=== PATIENT | male | born 1980 | race Asian ===

== ENCOUNTER 2018-07-08 10:10 | Emergency (ER) | payer SELFPAY ==
[2018-07-08] MEDS ORDERED: PEPCID IV ONE (11:17)
[2018-07-08] MEDS ORDERED: SOLU-Medrol IV ONE (11:17)
[2018-07-08] MEDS ORDERED: TORADOL IV ONE (11:17)
[2018-07-08] MEDS ORDERED: BENADRYL IV ONE (11:17)
[2018-07-08] MEDS ORDERED: NACL 0.9% 1000 ML 1,000 ML IV ONE (11:17)
[2018-07-08] MEDS ORDERED: SUBLIMAZE IV ONE (11:19)
--- NOTE | 2018-07-08 11:19 | Emergency Department Report ---
ED General Adult HPI - General Chief complaint: Abdominal Pain Stated complaint: L SIDE PAIN Time Seen by Provider: 07/08/18 11:07 Source: patient, RN notes reviewed Mode of arrival: Ambulatory Limitations: No Limitations - History of Present Illness Initial comments: This is a 37-year-old gentleman. The patient reportedly has a history of hypertension. The patient presents to the emergency room today with a complaint of left lower quadrant pain. The pain is present for 1-2 weeks. It is aching, and intermittent. It worsens with coughing, and it decreases with lying on his side. There is no nausea, vomiting, diarrhea, he reports no chest pain, no shortness of breath, no urinary symptoms and denies testicular pain. he denies DVT, pulmonary embolus risk factors. He endorses a secondary complaint of chronic wound to his anterior left tibial region, present for 6 months. He reports that he is currently taking an antibiotic, which she believes is Keflex, and "wound is not changing." He reports a prior antibiotic as well, but he cannot member the name of the antibiotic. The patient is not currently following up with the wound care fa cility for the wound. -: Gradual, week(s), month(s) Location: abdomen, left, lower extremity Radiation: non-radiation Severity scale (0 -10): 10 Quality: aching Consistency: intermittent Improves with: other Worsens with: other Associated Symptoms: rash. denies: confusion, chest pain, cough, diaphoresis, fever/chills, headaches, loss of appetite, malaise, nausea/vomiting, seizure, shortness of breath, syncope, weakness - Related Data Home Medications Medication Instructions Recorded Confirmed Last Taken Nebivolol HCl [Bystolic] 07/08/18 3 Weeks Ago ~06/17/18 Previous Rx's Medication Instructions Recorded Last Taken Type Acetaminophen [Tylenol Arthritis] 650 mg PO Q6HR PRN #30 tablet.er 07/08/18 Unknown Rx Amlodipine Besylate [Norvasc] 5 mg PO QDAY #30 tablet 07/08/18 Unknown Rx Ciprofloxacin HCl [Cipro] 500 mg PO TID #15 tablet 07/08/18 Unknown Rx Dicyclomine [Bentyl] 10 mg PO QID PRN #20 capsule 07/08/18 Unknown Rx Ibuprofen [Motrin] 600 mg PO Q8H PRN #30 tablet 07/08/18 Unknown Rx metroNIDAZOLE [Flagyl] 500 mg PO Q12HR #10 tab 07/08/18 Unknown Rx Allergies Allergy/AdvReac Type Severity Reaction Status Date / Time IV DYE Allergy Itching Uncoded 07/08/18 10:12 ED Review of Systems ROS: Stated complaint: L SIDE PAIN Other details as noted in HPI Constitutional: denies: fever Eyes: denies: vision change ENT: denies: epistaxis Respiratory: denies: cough Cardiovascular: denies: chest pain Gastrointestinal: abdominal pain Genitourinary: denies: urgency, dysuria, frequency, hematuria, discharge, testicular pain Skin: rash, lesions Neurological: denies: headache, weakness Psychiatric: anxiety ED Past Medical Hx - Past Medical History Previous Medical History?: Yes Hx Hypertension: Yes - Surgical History Past Surgical History?: No - Social History Smoking Status: Current Every Day Smoker Substance Use Type: Alcohol, Cocaine, Marijuana - Medications Home Medications: Home Medications Medication Instructions Recorded Confirmed Last Taken Type Acetaminophen [Tylenol Arthritis] 650 mg PO Q6HR PRN #30 tablet.er 07/08/18 Unknown Rx Amlodipine Besylate [Norvasc] 5 mg PO QDAY #30 tablet 07/08/18 Unknown Rx Ciprofloxacin HCl [Cipro] 500 mg PO TID #15 tablet 07/08/18 Unknown Rx Dicyclomine [Bentyl] 10 mg PO QID PRN #20 capsule 07/08/18 Unknown Rx Ibuprofen [Motrin] 600 mg PO Q8H PRN #30 tablet 07/08/18 Unknown Rx Nebivolol HCl [Bystolic] 07/08/18 3 Weeks Ago History ~06/17/18 metroNIDAZOLE [Flagyl] 500 mg PO Q12HR #10 tab 07/08/18 Unknown Rx ED Physical Exam - General Limitations: No Limitations General appearance: alert, anxious - Head Head exam: Present: atraumatic, normocephalic - Eye Eye exam: Present: normal appearance, EOMI. Absent: nystagmus - ENT ENT exam: Present: normal exam, normal orophraynx, mucous membranes moist, normal external ear exam - Neck Neck exam: Present: normal inspection, full ROM. Absent: tenderness, meningismus - Respiratory Respiratory exam: Present: normal lung sounds bilaterally. Absent: respiratory distress - Cardiovascular Cardiovascular Exam: Present: normal rhythm, tachycardia, normal heart sounds. Absent: systolic murmur, diastolic murmur, rubs, gallop - GI/Abdominal GI/Abdominal exam: Present: soft. Absent: distended, tenderness, guarding, rebound, rigid, pulsatile mass, hernia - Rectal Rectal exam: Present: deferred - exam: Present: normal inspection, circumcision, other (chaperoned by nurse Sparkle Daniels). Absent: testicular tenderness, scrotal swelling External exam: Present: normal external exam, other (chaperoned by nurse Sparkle Daniels). Absent: erythema, swelling, lesions, lacerations - Extremities Exam Extremities exam: Present: full ROM, other (2+ pulses noted in the bilateral upper, lower extremities. Compartments soft. No long bony tenderness. The pelvis is stable.). Absent: normal inspection (on the anterior left tibial region, chronic wound is noted, with no redness, pus or streaking, granulation tissue is appreciated. There is hyperpigmentation noted around the periphery of the wound.), tenderness, pedal edema, joint swelling, calf tenderness - Back Exam Back exam: Present: normal inspection, full ROM. Absent: tenderness, CVA tenderness (R), paraspinal tenderness, vertebral tenderness - Neurological Exam Neurological exam: Present: alert, CN II-XII intact, normal gait, other (Extraocular movements intact. Tongue midline. No facial droop. Facial sensation intact to light touch in the V1, V2, V3 distribution bilaterally. 5 and 5 strength in 4 extremities.. Sensation is intact to light touch in 4 extremities.). Absent: motor sensory deficit - Psychiatric Psychiatric exam: Present: normal affect, normal mood - Skin Skin exam: Present: warm, dry, intact, normal color. Absent: rash ED Course Vital Signs 07/08/18 07/08/18 07/08/18 10:16 11:05 11:16 Temperature 98.1 F Pulse Rate 114 H 116 H 119 H Respiratory 20 19 Rate Blood Pressure 162/92 O2 Sat by Pulse 98 Oximetry 07/08/18 07/08/18 07/08/18 11:30 11:46 12:00 Temperature Pulse Rate 92 H 63 103 H Respiratory 21 16 21 Rate Blood Pressure 176/114 176/114 O2 Sat by Pulse Oximetry 07/08/18 07/08/18 07/08/18 12:30 12:46 13:00 Temperature Pulse Rate 94 H 88 95 H Respiratory 25 H 21 23 Rate Blood Pressure 176/114 176/114 176/114 O2 Sat by Pulse Oximetry 07/08/18 07/08/18 07/08/18 13:16 13:30 13:45 Temperature Pulse Rate 105 H 101 H 96 H Respiratory 12 15 28 H Rate Blood Pressure 176/114 O2 Sat by Pulse Oximetry 07/08/18 07/08/18 14:01 14:15 Temperature Pulse Rate 71 95 H Respiratory 24 25 H Rate Blood Pressure 172/118 O2 Sat by Pulse 81 L Oximetry - Reevaluation(s) Reevaluation #1: 07/08/18 11:30 Differential diagnosis, including: Chronic left lower extremity wound, constipation, inflammatory bowel disease, infectious bowel disease, volvulus, obstruction, renal colic, malignancy Assessment and plan: 37-year-old gentleman with 2 complaints. Complaint #1, abdominal pain: Patient walked into the emergency room and appeared quite comfortable and was noted to be speaking on the side of the phone, and he was in no acute distress. When I walked into the patient's room to examine him, he didn't appear to be distressed. His abdomen is nontender, he has no testicular pain or tenderness, no obvious hernias noted on his external physical exam, including a normal bilateral inguinal examination. We will obtain CT scan of the abdomen and pelvis with and without IV contrast. The patient reports that his "allergy" to IV dye is "itching", without anaphylactic symptoms, and he reports that his last exposure to IV dye was 5-6 years ago. He will be pretreated with Pepcid, Benadryl, Solu-Medrol. Complaint #2: Chronic left lower extremity wound. Appears to be chronic, does not appear to be acutely superinfected. Nursing team to apply dressings, he can discontinue oral antibiotics, and he will be referred to the outpatient wound center. Somewhat anxious, he will given fentanyl for pain, elevated blood pressure is reviewed and appreciated, it is not acutely decompensated, he can follow up with his outpatient primary care doctor for his chronic hypertension. Please reference the [employer] clinical policy on chronic hypertension which is not acutely decompensated. Reevaluation #2: 07/08/18 11:47 Patient now very sleepy. In general, fentanyl canceled. Additional labs, noncontrast CT scan of the brain ordered. Patient reported to nursing team that he does intermittently consume marijuana. Reevaluation #3: 07/08/18 14:23 The patient is sleeping comfortably, and in no acute distress. CT scan interpretation is pending at this time. Reevaluation #4: 07/08/18 14:49 Patient is awake, walking without difficulty. CT scan reports reviewed and appreciated. Clinically do not have a high suspicion for mild diverticulitis, but we will cover empirically with antibiotics nonetheless. The patient is clinically sober at this time. His hypertension is reviewed and appreciated, he reported to nursing staff that he typically takes bystolic, but he reported that he is not taking it secondary to the cost. Patient will be instructed to download the "good Rx" application on his Smart phone device, and he will be prescribed prescription of Norvasc, which is typically more affordable. He is counseled to discontinue consumption of cannabis, cocaine. Patient was noted to be sleeping for many hours in the stretcher, without difficulty. He did have episodes of hypoxia while sleeping, suggestive of obstructive sleep apnea. He will be counseled to follow up with an outpatient primary care doctor for his hypertension, and an outpatient sleep specialist for his presumed sleep apnea. Patient is observed in the emergency room for hours without clinical decompensation, and he is suitable for a trial of outpatient management at this time. 07/08/18 14:51 ED Medical Decision Making - Lab Data Result diagrams: 07/08/18 10:32 07/08/18 10:32 Vital Signs 07/08/18 10:16 Temperature 98.1 F Pulse Rate 114 H Respiratory 20 Rate Blood Pressure 162/92 O2 Sat by Pulse 98 Oximetry - Radiology Data Radiology results: report reviewed, image reviewed Print Report Referring Physician: ISI PUENTE Patient Name: STARR GUY Date of : 1980 Sex: Male Report Date: 2018-07-08 Report Status: Finalized Findings [facility] [address] [place] [address] Cat Scan Report Signed Patient: STARR GUY MR#: [id number] : 1980 Acct:[id number] Age/Sex: 37 / M ADM Date: 07/08/18 Loc: ED Attending Dr: Ordering Physician: ISI PUENTE MD Date of Service: 07/08/18 Procedure(s): CT abdomen pelvis w con Accession Number(s): [id number] cc: ISI PUENTE MD CT ABDOMEN AND PELVIS WITH CONTRAST INDICATION: LLQ pain. COMPARISON: None similar. FINDINGS: Abdomen and pelvis CT performed following intravenous administration of 100 cc of Omnipaque 300. LUNG BASES: Mild bibasilar groundglass haziness posteriorly, nonspecific and presumed atelectatic, amongst others. Mild cardiomegaly. Right hemidiaphragm slightly higher than the left. Nonspecific distal esophageal wall mild prominence/thickening, not excluded for gastroesophageal reflux and/or hiatal hernia, amongst others. ABDOMEN: Liver, spleen, pancreas, adrenals, nonaneurysmal abdominal aorta with few ath erosclerotic calcifications, IVC and kidneys within normal limits. No ascites or size significant adenopathy. Contracted gallbladder, suboptimally assessed. Nonopacified GI tract evaluation limited, though grossly nonobstructive. Motion artifact partly degrades exam. A grossly normal appendix may though be present. Mild stool throughout colon. Small fat containing umbilical hernia with a transverse neck of 1.7 cm and subjacent nonobstructive small bowel. PELVIS: Mild sigmoid diverticulosis without acute complication. Grossly unremarkable urinary bladder, seminal vesicles and prostate. Small pelvic phleboliths. No free fluid or significant adenopathy. Mild reverse S-shaped imaged thoracolumbar scoliosis. Sacralization of right L5 transverse process incidentally seen. CONCLUSION: 1. No definite acute CT abnormality on this exam somewhat limited due to artifact with mild sigmoid diverticulosis noted, as described. Subtle acute diverticulitis below imaging threshold without abscess or perforation may though be considered clinically in light of provided history. 2. Various other incidental findings, as above. Thank you for the opportunity to participate in this patient's care. Transcribed By: RS Dictated By: JACOB HASSAN MD Electronically Authenticated By: JACOB HASSAN MD Signed Date/Time: 07/08/18 1441 DD/ 1433 TD/TT: 07/08/18 1441 Critical care attestation.: If time is entered above; I have spent that time in minutes in the direct care of this critically ill patient, excluding procedure time. ED Disposition Clinical Impression: Elevated blood pressure reading, Abdominal pain Disposition: - TO HOME OR SELFCARE Is pt being admited?: No Does the pt Need Aspirin: No Condition: Stable Additional Instructions: Urine toxicology screen demonstrated the presence of marijuana and cocaine. If patient is consuming these drugs, I strongly recommended the patient discontinue consumption, as long-term use may cause addiction, disability, deat h, paralysis, loss of quality of life. I recommend the patient down low the "good Rx " application onto his Smart phone device, or look it up online on a regular computer, and obtain his prescription s in conjunction with the coupons listed on this website, to obtain affordable prescriptions. Patient was found to be hypertensive in the emergency room, and should follow up with the primary care doctor within the next month for hypertension, and remain compliant with his blood pressure medications. Long-term complications of hypertension includes stroke, heart attack, disability, paralysis, loss of quality of life. Patient most likely has obstructive sleep apnea, which requires consultation with a sleep specialist or primary care doctor, weight loss, discontinuation of sedating medications, sedating drugs, and typically the use of a CPAP sleeping device. Not following up as recommended may result in disability, paralysis, loss of quality of life. Dr Louise is a local sleep doctor CT scan of the abdomen and pelvis demonstrated numerous incidental findings, possible early diverticulitis/diverticulosis/inflammation on the large intestine. Drinks 4-6 cups of water per day, consume plenty of fruits, fibers, vegetables, and follow-up with a [facility] wrestler within the next 5-6 weeks. Not following up as recommended may result an undiagnosed cancer, tumor, malignancy. Please return to the emergency room right away with new, worsening or different symptoms. Return to the emergency room right away with symptoms not present on the initial ER evaluation. Do not consume alcohol while taking the prescribed medications for the next week. Referrals: JEB LOUISE MD [Staff Physician] - as needed [facility] [Provider Group] - as needed [facility] [Other] - as needed
[2018-07-08] MEDS ORDERED: ANTIBIOTIC OINT TP STA (11:23)
[2018-07-08 11:43] LABS: Hematocrit 46.9 % (35.5-45.6); Hemoglobin 15.5 gm/dl (11.8-15.2); Mean Corpuscular HGB Conc 33 % (32-34); Mean Corpuscular Volume 97 fl (84-94); Platelet Count 206 K/mm3 (140-440); Red Blood Count 4.86 M/mm3 (3.65-5.03); Red Cell Distribution Width 14.2 % (13.2-15.2)
[2018-07-08 12:06] LABS: Alanine Aminotransferase 19 units/L (7-56); BUN/Creatinine Ratio 8; Blood Urea Nitrogen 9 mg/dL (9-20); Calcium 9.2 mg/dL (8.4-10.2); Hemolysis Index 22
--- NOTE | 2018-07-08 13:03 | Cat Scan Report ---
CT HEAD WITHOUT CONTRAST INDICATION: Sleepy. COMPARISON: None similar at this institution. FINDINGS: Noncontrast head CT demonstrates normal ventricles and sulci without acute or recent infarct, hemorrhage, mass effect or midline shift. No abnormal extra-axial fluid collections. Posterior fossa structures and basilar cisterns appear within normal limits. Symmetric eye globes. Moderate air-fluid level within right maxillary sinus with mild right and moderate to severe left maxillary sinus mucosal thickening as well. Moderate to severe right sphenoid and right more than left ethmoid sinus mucosal thickening also seen. Mild left sphenoid sinus mucosal thickening as well. Grossly clear left frontal sinus and bilateral mastoid air cells. Normal calvarium and scalp. Small radiopaque dental fillings. CONCLUSION: No acute intracranial CT abnormality with moderate to severe sinusitis noted, as described. Thank you for the opportunity to participate in this patient's care.
[2018-07-08 13:25] LABS: Bilirubin,Urine NEG (Negative); Blood,Urine NEG (Negative); Color,Urine Yellow (Yellow); Protein,Urine <15 mg/dL mg/dL (Negative); Urobilinogen,Urine < 2.0 mg/dL (<2.0)
[2018-07-08 13:35] LABS: Amphetamine Screen,Urine PRESUMPTIVE NEGATIVE; Benzodiazepines Screen,Urine PRESUMPTIVE NEGATIVE; Methadone Screen,Urine PRESUMPTIVE NEGATIVE; Opiate Screen,Urine PRESUMPTIVE NEGATIVE
[2018-07-08 13:54] LABS: Cannabinoid Screen,Urine PRESUMPTIVE POSITIVE; Cocaine Screen,Urine PRESUMPTIVE POSITIVE
[2018-07-08 14:28] VITALS: BP 172/118
--- NOTE | 2018-07-08 14:41 | Cat Scan Report ---
CT ABDOMEN AND PELVIS WITH CONTRAST INDICATION: LLQ pain. COMPARISON: None similar. FINDINGS: Abdomen and pelvis CT performed following intravenous administration of 100 cc of Omnipaque 300. LUNG BASES: Mild bibasilar groundglass haziness posteriorly, nonspecific and presumed atelectatic, amongst others. Mild cardiomegaly. Right hemidiaphragm slightly higher than the left. Nonspecific distal esophageal wall mild prominence/thickening, not excluded for gastroesophageal reflux and/or hiatal hernia, amongst others. ABDOMEN: Liver, spleen, pancreas, adrenals, nonaneurysmal abdominal aorta with few atherosclerotic calcifications, IVC and kidneys within normal limits. No ascites or size significant adenopathy. Contracted gallbladder, suboptimally assessed. Nonopacified GI tract evaluation limited, though grossly nonobstructive. Motion artifact partly degrades exam. A grossly normal appendix may though be present. Mild stool throughout colon. Small fat containing umbilical hernia with a transverse neck of 1.7 cm and subjacent nonobstructive small bowel. PELVIS: Mild sigmoid diverticulosis without acute complication. Grossly unremarkable urinary bladder, seminal vesicles and prostate. Small pelvic phleboliths. No free fluid or significant adenopathy. Mild reverse S-shaped imaged thoracolumbar scoliosis. Sacralization of right L5 transverse process incidentally seen. CONCLUSION: 1. No definite acute CT abnormality on this exam somewhat limited due to artifact with mild sigmoid diverticulosis noted, as described. Subtle acute diverticulitis below imaging threshold without abscess or perforation may though be considered clinically in light of provided history. 2. Various other incidental findings, as above. Thank you for the opportunity to participate in this patient's care.
== END 2018-07-08 15:21 | disposition home or self-care (01) ==
LOC: ED 10:10
DX: R10.32 Left lower quadrant pain (principal); R51 Headache; I10 Essential (primary) hypertension; F17.200 Nicotine dependence, unspecified, uncomplicated; F12.10 Cannabis abuse, uncomplicated; F14.10 Cocaine abuse, uncomplicated; Z91.041 Radiographic dye allergy status; Z79.899 Other long term (current) drug therapy
CPT/HCPCS: 36415; 70450; 74177; 80053; 80307; 81001; 83690; 85027; 96374; 96375; 99284; G0480; J1885; J2930; J7030; 80320